=== PATIENT | female | born 1995 | race Caucasian/White ===

== ENCOUNTER 2017-12-11 11:41 | Emergency (ER) | payer MEDICAID ==
[2017-12-11 12:05] VITALS: BP 125/73
[2017-12-11] MEDS ORDERED: Albuterol 2.5 MG/3 ML NEB.SOL* (0.083%) INH ONE (12:45)
--- NOTE | 2017-12-11 13:19 | UC ---
Nimo Chatman Rebecca, scribed for Sanjuana Carrillo MD on 12/11/17 at 1237 . Respiratory Complaint HPI - HPI Summary HPI Summary: Pt is a 22 y/o F who presents to [facility] c/o rhinorrhea, cough, and chest tightness when breathing. Sx began 5 days ago with green nasal discharge, then yesterday, she began experiencing the cough and chest tightness. The cough is nonproductive, though phlegm is being brought up without being expelled. Sx alleviated by steam, aggravated by nothing. Additionally c/o post-nasal drip and sinus pressure. Reports that people around her have been ill recently, including someone with bronchitis. Currently , due February 21, 2018. PMHx asthma for which she uses albuterol, though she does not have her inhaler with her as she is 3 [place] of town. Pt is , due in february + movement Pt's medications reviewed this visit. - History of Current Complaint Chief Complaint: UCRespiratory Stated Complaint: URI Time Seen by Provider: 12/11/17 12:30 Hx Obtained From: Patient Hx Last Menstrual Period: 05/03/13 ?: Yes Onset/Duration: Lasting Days - 5 days, Still Present Severity Currently: Moderate Pain Intensity: 5 Pain Scale Used: 0-10 Numeric Character: Cough: Nonproductive Aggravating Factors: Nothing Alleviating Factors: Other - Steam Associated Signs And Symptoms: Positive: Sinus Discomfort - Allergies/Home Medications Allergies/Adverse Reactions: Allergies Allergy/AdvReac Type Severity Reaction Status Date / Time butorphanol [From Stadol] Allergy Swelling Verified 12/11/17 12:05 Of Face,Lips,& Throat ibuprofen Allergy Swelling Verified 12/11/17 12:05 Of Face,Lips,& Throat PMH/Surg Hx/FS Hx/Imm Hx - Additional Past Medical History Additional PMH: PMHx: ADD Previously Healthy: Yes Respiratory History: Asthma - Surgical History Surgical History: Yes Surgery Procedure, Year, and Place: deviated septum 2011; T&A; tubes bilat; wisdom teeth - Family History Known Family History: Positive: Diabetes, Other - Asthma, mitral valve prolapse - Social History Occupation: Employed Part-time Lives: With Family Alcohol Use: None Substance Use Type: None Smoking Status (MU): Never Smoked Tobacco - Immunization History Most Recent Tetanus Shot: UTD with vaccines Vaccination Up to Date: Yes Review of Systems Constitutional: Negative Skin: Negative Eyes: Negative ENT: Nasal Discharge, Sinus Pain/Tenderness - pressure, Other - Post-nasal drip Respiratory: Cough, Other - Chest tightness Cardiovascular: Negative Gastrointestinal: Negative Genitourinary: Negative Motor: Negative Neurovascular: Negative Musculoskeletal: Negative Neurological: Negative Psychological: Negative All Other Systems Reviewed And Are Negative: Yes Physical Exam Triage Information Reviewed: Yes Appearance: Well-Appearing, No Pain Distress, Well-Nourished Vital Signs: Initial Vital Signs Temp 97.6 F 12/11/17 11:59 Pulse 101 12/11/17 11:59 Resp 18 12/11/17 11:59 BP 125/73 12/11/17 11:59 Pulse Ox 98 12/11/17 11:59 Vital Signs Reviewed: Yes Eye Exam: Normal Eyes: Positive: Conjunctiva Clear ENT Exam: Normal ENT: Positive: Pharynx normal, Nasal congestion, TMs normal Dental Exam: Normal Neck exam: Normal Neck: Positive: Supple, Nontender, No Lymphadenopathy Respiratory Exam: Normal Respiratory: Positive: Chest non-tender, No respiratory distress, No accessory muscle use, Wheezing - scattered wheeze, no rhonci coarse cough non productive no increased WOB speaking full easy sentences Cardiovascular Exam: Normal Cardiovascular: Positive: RRR, No Murmur Abdominal Exam: Normal Abdomen Description: Positive: Nontender, No Organomegaly, Soft Musculoskeletal Exam: Normal Musculoskeletal: Positive: Strength Intact Neurological Exam: Normal Neurological: Positive: Alert Psychological Exam: Normal Psychological: Positive: Normal Response To Family Skin Exam: Normal UC Diagnostic Evaluation - Laboratory O2 Sat by Pulse Oximetry: 98 Re-Evaluation - Re-Evaluation First Eval Re-Evaluation Time: 13:25 Change: Improved Comment: The patient has significantly improved. Wheezing has completely resolved and she feels much better. Will Rx amoxicilling. albuterol. secretion precaution. apap. return precautions. pt in agreement with plan Respiratory Course/Dx - Course Course Of Treatment: Patients medication reviewed this visit. Pt with nasal congestion, cough, and fatigue. pt with sick exposure. pt with - due in February. Pt with scattered wheeze. will give neb. reassess - Differential Dx/Diagnosis Provider Diagnoses: bronchitis Discharge - Sign-Out/Discharge Documenting (check all that apply): Discharge - Discharge Plan Condition: Stable Disposition: HOME Prescriptions: Albuterol HFA INHALER* [Ventolin HFA Inhaler*] 1 puff INH Q4H PRN #1 mdi PRN Reason: wheeze Amoxicillin PO (*) [Amoxicillin 875 MG (*)] 875 mg PO BID #14 tab Patient Education Materials: Acute Bronchitis (ED) Referrals: Jessika Ortiz NP [Primary Care Provider] - Additional Instructions: - Stay well hydrated. Drink plenty of non-alcoholic, non-caffinated beverages. -Take Tylenol g and Tylenol every 6 hours for pain or fever. Take with food. Do NOT take for more than 4-5 days. - take antibiotics a prescribed - use inhaler - 2 puffs every 4 hours today and tomorrow, then every 4 hours as needed -cold foods (popsicle, jello, apple sauce) may be soothing to your throat - These infections are spread by secretions - do NOT share eating or drinking utensils - clean items you share with other people such as cell phones, computer mouse, TV remote, computer tablets, etc. After you have taken Amoxicillin for 2-3 days, change your toothbrush and your pillowcase. - get plenty of restful sleep - humidify the air in the room where you sleep - boil water, run a hot steam shower, vaporizer, cups of water by heat register - okay to take over the counter decongestant and cough medication - contact student health, return here, or go to the emergency department with questions or concerns - Billing Disposition and Condition Condition: STABLE Disposition: HOME The documentation as recorded by the Nimo layne Rebecca accurately reflects the service I personally performed and the decisions made by , Sanjuana Carrillo MD.
== END 2017-12-11 13:40 | disposition home or self-care (01) ==
LOC: UCEAST 11:41
DX: J40 Bronchitis, not specified as acute or chronic (principal); Z88.8 Allergy status to other drugs, medicaments and biological substances
CPT/HCPCS: 99202; G0463

== ENCOUNTER 2019-01-08 19:58 | Emergency (ER) | payer OTHER ==
[2019-01-08 20:13] VITALS: BP 148/60
--- NOTE | 2019-01-08 21:20 | UC ---
Lower Extremity/Ankle HPI - HPI Summary HPI Summary: patient feel on a broken porch step 4 foot this afternoon---has pain in right ankle and lower leg - History of Current Complaint Chief Complaint: UCLowerExtremity Stated Complaint: R FOOT INJURY Time Seen by Provider: 01/08/19 20:08 Hx Obtained From: Patient Hx Last Menstrual Period: 10 days ?: No Onset/Duration: Sudden Onset, Lasting Hours Severity Initially: Moderate Severity Currently: Moderate Pain Intensity: 5 Pain Scale Used: 0-10 Numeric Aggravating Factor(s): Standing, Ambulation Alleviating Factor(s): Rest, Elevation Able to Bear Weight: No - Allergies/Home Medications Allergies/Adverse Reactions: Allergies Allergy/AdvReac Type Severity Reaction Status Date / Time butorphanol [From Stadol] Allergy Swelling Verified 01/08/19 20:05 Of Face,Lips,& Throat ibuprofen Allergy Swelling Verified 01/08/19 20:05 Of Face,Lips,& Throat PMH/Surg Hx/FS Hx/Imm Hx Previously Healthy: No Respiratory History: Asthma - Surgical History Surgical History: Yes Surgery Procedure, Year, and Place: deviated septum 2011; T&A; tubes bilat EARS ; wisdom teeth. 2 C-SECTIONS - Family History Known Family History: Positive: Diabetes, Other - Asthma, mitral valve prolapse - Social History Occupation: Works From/At Home Lives: With Family Alcohol Use: Occasionally Substance Use Type: None Smoking Status (MU): Former Smoker Amount Used/How Often: 1/2 PPD X 6 YEARS Have You Smoked in the Last Year: No When Did the Patient Quit Smoking/Using Tobacco: 07/2016 - Immunization History Most Recent Tetanus Shot: UTD with vaccines Vaccination Up to Date: Yes Review of Systems All Other Systems Reviewed And Are Negative: Yes Constitutional: Positive: Negative Skin: Positive: Negative Eyes: Positive: Negative ENT: Positive: Negative Respiratory: Positive: Negative Cardiovascular: Positive: Negative Gastrointestinal: Positive: Negative Genitourinary: Positive: Negative Motor: Positive: Negative Neurovascular: Positive: Negative Musculoskeletal: Positive: Arthralgia - right ankle and lower leg Neurological: Positive: Negative Psychological: Positive: Negative Is Patient Immunocompromised?: No Physical Exam Triage Information Reviewed: Yes Appearance: Well-Appearing, Pain Distress, Obese Vital Signs: Initial Vital Signs Temp 98 F 01/08/19 20:06 Pulse 99 01/08/19 20:06 Resp 18 01/08/19 20:06 BP 148/60 01/08/19 20:06 Pulse Ox 97 01/08/19 20:06 Vital Signs Reviewed: Yes Eye Exam: Normal Eyes: Positive: Conjunctiva Clear ENT Exam: Normal ENT: Positive: Normal ENT inspection, Hearing grossly normal. Negative: Trismus , Muffled voice, Hoarse voice Dental Exam: Normal Neck exam: Normal Neck: Positive: Supple, Nontender Respiratory Exam: Normal Respiratory: Positive: Chest non-tender, No respiratory distress, No accessory muscle use Cardiovascular Exam: Normal Cardiovascular: Positive: RRR, Pulses Normal, Brisk Capillary Refill Musculoskeletal Exam: Other Musculoskeletal: Positive: No Edema, Strength Limited @ - right foot/ankle, ROM Limited @ - right foot/ankle Neurological Exam: Normal Neurological: Positive: Alert, Muscle Tone Normal Psychological Exam: Normal Skin Exam: Normal Diagnostics - Radiology No standard instances Radiology Interpretation Completed By: ED Physician Summary of Radiographic Findings: no evidence of lower leg or ankle fracture Lower Extremity Course/Dx - Course Course Of Treatment: cam bot, rice, crutches, Tylenol follow with orthopedic in 3 days - Differential Dx/Diagnosis Provider Diagnosis: Sprain of right ankle, Hypertension Discharge - Sign-Out/Discharge Documenting (check all that apply): Patient Departure All imaging exams completed and their final reports reviewed: No - Discharge Plan Condition: Stable Disposition: HOME Patient Education Materials: Ankle Sprain (ED), Contusion in Adults (ED), Foot Contusion (ED), Hypertension (ED), R.I.C.E. Treatment (ED) Referrals: Gilberto Almonte MD [Medical Doctor] - 3 Days - Billing Disposition and Condition Condition: STABLE Disposition: Home
--- NOTE | 2019-01-09 13:35 | UC ---
- Progress Note Progress Note: Radiologist reading radiologist reading of right ankle and right lower leg x- rays from January 09, 2019 comes back with a reading of no fracture but positive for soft tissue swelling. Provider report on the same day it read as no fracture therefore there is no discrepancy. Course/Dx - Diagnoses Provider Diagnoses: Sprain of right ankle, Hypertension Discharge - Sign-Out/Discharge Documenting (check all that apply): Patient Departure All imaging exams completed and their final reports reviewed: Yes - Discharge Plan Condition: Stable Disposition: HOME Patient Education Materials: Ankle Sprain (ED), Contusion in Adults (ED), Foot Contusion (ED), Hypertension (ED), R.I.C.E. Treatment (ED) Referrals: Gilberto Almonte MD [Medical Doctor] - 3 Days - Billing Disposition and Condition Condition: STABLE Disposition: Home
== END 2019-01-08 21:07 | disposition home or self-care (01) ==
LOC: UCEAST 19:58
DX: S93.401A Sprain of unspecified ligament of right ankle, initial encounter (principal); W13.8XXA Fall from, out of or through other building or structure, initial encounter; Y92.008 Other place in unspecified non-institutional (private) residence as the place of occurrence of the external cause; I10 Essential (primary) hypertension; J45.909 Unspecified asthma, uncomplicated; Z88.6 Allergy status to analgesic agent; Z88.5 Allergy status to narcotic agent; Z87.891 Personal history of nicotine dependence
CPT/HCPCS: 99212; G0463

== ENCOUNTER 2019-07-26 07:25 | Inpatient (IN) | payer OTHER ==
[~2019-07-26 07:25] MED LIST: Buffered Lidocaine 1% SYRIN* 1 ML/SYRINGE INTRADERM ONE; Lactated Ringers 1000 ML Bag* 1,000 ML IV SCH; Sodium Citrate/Citric Acid* 15 ML UDC PO ONE
[2019-07-26] MEDS ORDERED: Buffered Lidocaine 1% SYRIN* 1 ML/SYRINGE INTRADERM ONE (08:00)
[2019-07-26] MEDS ORDERED: ceFAZolin 1 GM ADVAN(*) 1 GM ADDV.VIAL IVPB ONE (08:00)
[2019-07-26] MEDS ORDERED: Heparin VIAL(*) 5000 UNITS/ML VIAL (FIVE THOUSAND) ONE (08:00)
[2019-07-26] MEDS ORDERED: Sodium Citrate/Citric Acid* 15 ML UDC ONE (08:00)
[2019-07-26] MEDS ORDERED: ceFAZolin 2 GM in NS PREMIX(*) 2 GM/100 ML BAG IVPB ONE (08:00)
[2019-07-26] MEDS ORDERED: Bupivacaine 0.25% SDV PF* 10 ML VIAL INJ ONE (08:44)
[2019-07-26] MEDS ORDERED: DiMENhydriNATE IV* 50 MG/ML VIAL IV PUSH PRN (08:59)
[2019-07-26] MEDS ORDERED: Scopolamine 1.5 mg* PATCH TRANSDERM PRN (08:59)
[2019-07-26] MEDS ORDERED: Acetaminophen IV 1GM/100ML * 1,000 MG/100 ML VIAL IVPB ONE (08:59)
[2019-07-26] MEDS ORDERED: Naloxone* 0.4 MG/ML 1 ML VIAL IV PRN (08:59)
[2019-07-26] MEDS ORDERED: fentaNYL* 50 MCG/ML 2 ML VIAL (100 MCG VIAL) ONE ×2 (09:08→11:45)
[2019-07-26] MEDS ORDERED: Propofol* 10 MG/ML 20 ML BTL ONE (09:09)
[2019-07-26] MEDS ORDERED: Rocuronium* 10 MG/ML VIAL ONE (09:11)
[2019-07-26] MEDS ORDERED: KETAMINE HCL* 50 MG/ML 10 ML VIAL ONE (09:23)
[2019-07-26] MEDS ORDERED: Glycopyrrolate IV* 0.2 MG/ML 1 ML VIAL ONE (10:41)
[2019-07-26] MEDS ORDERED: Neostigmine Methylsulfate* 3 MG/3 ML SYRINGE ONE (10:42)
[2019-07-26] MEDS ORDERED: diPHENhydraMINE IV* 50 MG/ML 1 ml VIAL (BENADRYL) SLOW PUSH PRN (11:06)
[2019-07-26] MEDS ORDERED: HYDROmorphone INJ1* 1 MG/ML SYRINGE IV SLOW PU PRN (11:06)
--- NOTE | 2019-07-26 11:08 | OP ---
Operative Report - Blank - Operative Report Date of Operation: 07/26/19 Note: Pre-OP Diagnoses: Clinically severe obesity Post-op Diagnosis: same Procedure: Laparoscopic sleeve gastrectomy Surgeon: Apoorva Florest: Dedrick Anethesia: DICK Mike EBL: minimal IVF: see record Specimen: portion of stomach Drains: none
[2019-07-26] MEDS ORDERED: Albuterol HFA INHALER* 8 gm MDI INH PRN (11:13)
[2019-07-26] MEDS ORDERED: DiMENhydriNATE IV* 50 MG/ML VIAL ONE (11:27)
[2019-07-26] MEDS ORDERED: Acetaminophen IV 1GM/100ML * 100 ML ONE (11:27)
[2019-07-26] MEDS: fentaNYL* 50 MCG/ML 2 ML VIAL (100 MCG VIAL) IV PRN ×2 (11:46→12:21)
[2019-07-26] MEDS: Ondansetron INJ* 2 MG/ML VIAL IV PRN ×2 (11:49→19:24)
[2019-07-26] MEDS ORDERED: Ondansetron INJ* 2 MG/ML VIAL ONE (11:49)
--- NOTE | 2019-07-26 12:49 | OP ---
CC: [facility]ariat[facility]; Fam Link Jr. * DATE OF OPERATION: 07/26/19 - ROOM #353 DATE OF : 89 SURGEON: Tucker Guerin MD. PLASTERING CONTRACTOR: Alyssa Tse NP ANESTHESIOLOGIST: Dr. Mike. ANESTHESIA: General. PRE-OP DIAGNOSIS: Clinically severe obesity. POST-OP DIAGNOSIS: Clinically severe obesity. OPERATIVE PROCEDURE: Laparoscopic sleeve gastrectomy. ESTIMATED BLOOD LOSS: Minimal blood loss. FLUIDS: Crystalloid fluid given, see record. SPECIMEN: Portion of stomach. COUNTS: Lap pad count and instrument count correct at the end of the procedure. COMPLICATIONS: None. DESCRIPTION OF PROCEDURE: The patient was identified in the preoperative area, marked, and consent was signed. She was then taken back to the operating room and placed on the operating table in supine position. Preoperative antibiotics given. Sequential devices were placed in bilateral lower extremities. General anesthesia was induced. The patient's abdomen was prepped and draped in standard surgical fashion. Time-out was performed. Folds of the umbilicus were elevated anteriorly and a Veress needle inserted into the abdominal cavity, which was then allowed to insufflate to pressure of 50 mmHg. The patient tolerated insufflation well. [place] between the xiphoid and umbilicus a 12 mm optical trocar was inserted. Laparoscope scope was inserted through this and there was no evidence of injury from the trocar insertion or from the Veress needle, which was then removed. Review of the abdomen showed no free fluid, no blood, there was a very enlarged liver as well as spleen once we started to place the patient in position, we then placed two 5 mm in the left upper quadrant and one 12 mm in the right upper quadrant. Table was repositioned to steep reverse Trendelenburg and Opal retractor was inserted through the subxiphoid incision and the liver was retracted anterior to the right. This was thin but large and did drape over the spleen which was also large, showed no lesions. Next, the gastroesophageal fat pad was grasped and retracted towards right lower quadrant. We then used blunt and sharp dissection to expose the left nella. The lateral aspect of the fat pad was then dissected off the anterior aspect of the stomach. Next, retrogastric tunnel was made at approximately 6 cm proximal to the pylorus. We then used the LigaSure to take the vasculature right up to the angle of His that was previously dissected. We then took posterior attachments as well until the stomach could be entirely rotated on its axis. Next, sleeve stomach was made over 40-Urdu bougie using 60 mm purple GI stapling device with reinforcements. The staple line was intact without twisting, it was tight to the bougie which was then removed at the end of the procedure. The sleeve stomach was then evaluated. There was no bleeding, the liver retractor was removed and the liver fell back on top of the stomach obscuring almost the entire stomach with the exception of the antrum. Next, the resected portion was placed in the endoscope retrieval bag and brought out through the right upper quadrant port site after dilating this. We then closed the fascia with an 0-Vicryl suture using a Weck device. The abdomen was then allowed to collapse, trocars removed under direct vision. Counts were correct and then all 5 skin incisions were reapproximated with 4-0 Monocryl subcuticular sutures, followed by Steri-Strips and sterile dressings. [id number]/[facility] #: [id number] CINDY
[2019-07-26] MEDS: Lactated Ringers 1000 ML Bag* 1,000 ML IV SCH ×2 (14:12→20:29)
[2019-07-26] MEDS: HYDROmorphone INJ* 0.5 MG/0.5 ML SYRINGE IV SLOW PU PRN ×3 (14:42→22:23)
[2019-07-26] MEDS: Metoclopramide IV* 5 MG/ML 2 ML VIAL IV PRN (16:49)
[2019-07-26] MEDS ORDERED: Scopolamine 1.5 mg* PATCH TRANSDERM SCH (17:00)
[2019-07-26] MEDS: Famotidine IV* 10 MG/ML 2 ML (20 mg) IV SLOW PU SCH (21:18)
[2019-07-26] MEDS: Heparin VIAL(*) 5000 UNITS/ML VIAL (FIVE THOUSAND) SUBCUT SCH (22:22)
[2019-07-27] MEDS: Lactated Ringers 1000 ML Bag* 1,000 ML IV SCH (03:19)
[2019-07-27] MEDS: HYDROmorphone INJ* 0.5 MG/0.5 ML SYRINGE IV SLOW PU PRN ×4 (03:37→19:46)
[2019-07-27] MEDS: Heparin VIAL(*) 5000 UNITS/ML VIAL (FIVE THOUSAND) SUBCUT SCH ×3 (05:59→22:12)
[2019-07-27] MEDS: Famotidine IV* 10 MG/ML 2 ML (20 mg) IV SLOW PU SCH ×2 (07:34→21:26)
[2019-07-27] MEDS ORDERED: LEVONORGESTREL VAGINAL SCH (09:00)
[2019-07-27] MEDS ORDERED: Influenza VAC *QUAD* 2019-20* 0.5 ML SYRINGE IM ONE (09:00)
[2019-07-27] MEDS: D5W 1/2 NS KCl 20 Meq 1000 ML* 1,000 ML IV SCH ×2 (10:43→19:14)
--- NOTE | 2019-07-27 10:45 | PN ---
Progress Note - Progress Note Date of Service: 07/27/19 SOAP: Subjective: Comfortable in bed, NAD. - flatus - BM -nausea [] Objective: Vital Signs Temp 98.4 F 07/27/19 07:25 Pulse 60 07/27/19 07:25 Resp 18 07/27/19 08:53 BP 132/69 07/27/19 07:25 Pulse Ox 100 07/27/19 07:25 Intake & Output 07/26/19 07/27/19 07/27/19 18:59 06:59 18:59 Intake Total 1100 1979 Output Total 500 1000 200 Balance 600 980 -200 Weight 300 lb Intake: IV Fluids 1100 1979 LR 1100 1979 Oral 0 Output: Urine 500 1000 200 PEX: Gen: NAD Chest: CTA B/L CVS: RRR Abd: obese, soft, incisions C/D/I, Hypo BS's Ext: calves soft, non tender [] Assessment: POD 1 S/P LAp Sleeve Gastrectomy. UGI showed no leaks [] Plan: Start Bariatric clear liquid diet. OOB ambulate, Insentive spirometry. []
[2019-07-27] MEDS: Ondansetron INJ* 2 MG/ML VIAL IV PRN (13:47)
[2019-07-27] MEDS: Metoclopramide IV* 5 MG/ML 2 ML VIAL IV PRN (18:00)
[2019-07-28] MEDS: HYDROmorphone INJ* 0.5 MG/0.5 ML SYRINGE IV SLOW PU PRN (03:13)
[2019-07-28] MEDS: D5W 1/2 NS KCl 20 Meq 1000 ML* 1,000 ML IV SCH (05:18)
[2019-07-28] MEDS: Heparin VIAL(*) 5000 UNITS/ML VIAL (FIVE THOUSAND) SUBCUT SCH (06:08)
[2019-07-28] MEDS ORDERED: Acetaminophen ADULT LIQ* 650 MG/20.3 ML UDC PO PRN (08:59)
[2019-07-28] MEDS ORDERED: HYDROcodone/ACET. 7.5/325 LIQ* 15 ML UDC PO PRN (09:00)
[2019-07-28] MEDS ORDERED: HYDROcodone/ACET. 7.5/325 LIQ* 15 ML UDC ONE (09:10)
[2019-07-28] MEDS: Famotidine IV* 10 MG/ML 2 ML (20 mg) IV SLOW PU SCH (09:14)
[2019-07-28 11:10] VITALS: BP 149/75
--- NOTE | 2019-07-28 15:22 | DS ---
CC: Primary Care Doctor; [facility] Metabolic [facility] Bariatric Surgery DISCHARGE SUMMARY: DATE OF ADMISSION: DATE OF DISCHARGE: 07/28/19 HOSPITAL COURSE: Ms. Jones is a 24-year-old female worked up as an outpatient with clinically severe obesity. She went to the operating room on day of admission for a laparoscopic sleeve gastrectomy. The patient's procedure was uneventful. Please see operative report for details. She was then transf erred to the PACU and onto the short stay surgical unit. By postoperative day 1, the patient underwent an upper GI study which was within normal limits and th e patient was started on a clear diet. By postoperative day 2, the patient was improved from her nausea on postoperative day 1 and was ready for discharge. The patient was discharged home in stable condition on 07/28/19 for planned to return to her regular medications with the inclusion of a proton pump inhibitor I described to her. PHYSICAL EXAMINATION: On the day of discharge, the patient was alert and oriented x3, in no apparent distress. Head, Ears, Eyes, Nose, and Throat: Normocephalic, atraumatic. Sclerae anicteric. Muco us membranes are moist. Abdomen: Soft, nondistended, nontender. Dressings removed. Steri-Strips i n place. No cellulitis. No calf tenderness. DISPOSITION: Discharged home. Follow up on Wednesday at [facility] for [facility] Sean judi. [id number]/[facility] #: [id number]
[2019-07-29] MEDS ORDERED: Scopolamine PATCH Remove* 1 NOTE MISC PATCH OFF SCH (17:00)
== END 2019-07-28 12:30 | disposition home or self-care (01) | DRG 403 ==
LOC: AA 07:25 → SSU 11:06
PROVIDERS: ADMIT Surgery; ATTEND Surgery
PROC: 0DB64Z3 Excision of Stomach, Percutaneous Endoscopic Approach, Vertical (ICD-10-PCS; principal; 2019-07-26 09:15)
DX: E66.01 Morbid (severe) obesity due to excess calories (principal); Z68.42 Body mass index [BMI] 45.0-49.9, adult; E28.2 Polycystic ovarian syndrome; G47.33 Obstructive sleep apnea (adult) (pediatric); J45.20 Mild intermittent asthma, uncomplicated; E55.9 Vitamin D deficiency, unspecified; F41.8 Other specified anxiety disorders; K58.9 Irritable bowel syndrome, unspecified; Z79.899 Other long term (current) drug therapy; Z83.49 Family history of other endocrine, nutritional and metabolic diseases; Z83.3 Family history of diabetes mellitus; Z82.61 Family history of arthritis; Z87.891 Personal history of nicotine dependence
CPT/HCPCS: 43775; 74246; 81025; 88307; 90686; A9270-GY; J0690; J1170; J1240; J1644; J2405; J2704; J2710; J2765; J3010; J3490

== ENCOUNTER 2021-05-28 09:55 | Observation (INO) ==
[~2021-05-28 09:55] MED LIST changes: +Buffered Lidocaine 1% SYRIN 1 ml INTRADERM ONE; -Buffered Lidocaine 1% SYRIN* 1 ML/SYRINGE INTRADERM ONE; +DiMENhydriNATE IV 50 mg/ml 1 ml VIAL IV PUSH ONE; +HYDROcodone/ACETAMIN 5/325 mg TAB PO PRN; -Lactated Ringers 1000 ML Bag* 1,000 ML IV SCH; +Lactated Ringers 1000 ml BAG 1,000 ML IV SCH; +Metoclopramide 5 MG/ML VIAL (10 mg) IV PRN; +Naloxone 0.4 mg VIAL 0.4 mg/ml 1 ml VIAL IV PRN; +Ondansetron 4 mg VIAL 2 MG/ML 2 ml VIAL IV PRN; -Sodium Citrate/Citric Acid* 15 ML UDC PO ONE
[2021-05-28] MEDS ORDERED: Rocuronium 50 mg VIAL 10 mg/ml 5 ml VIAL (50 mg) ONE (10:07)
[2021-05-28] MEDS ORDERED: Ondansetron 4 mg VIAL 2 MG/ML 2 ml VIAL ONE (10:07)
[2021-05-28] MEDS ORDERED: Midazolam 2 mg/2 ml VIAL 1 mg/ml 2 ml VIAL (2 mg) ONE (10:07)
[2021-05-28] MEDS ORDERED: fentaNYL 250 mcg/5 ml 50 MCG/ML 5 ml VIAL (250 MCG) ONE (10:07)
[2021-05-28] MEDS ORDERED: Propofol 10 MG/ML 20 ML BTL ONE (10:07)
[2021-05-28] MEDS ORDERED: Dexamethasone IV 4 MG/ML VIAL 1 ml VIAL ONE (10:07)
[2021-05-28] MEDS ORDERED: Lidocaine 2% PF 5 ML VIAL ONE (10:07)
[2021-05-28] MEDS ORDERED: ceFAZolin 2 GM in NS PREMIX 2 GM/100 ML BAG IVPB ONE (10:15)
[2021-05-28] MEDS ORDERED: Heparin 5000 UNITS/ML 1 mL VIAL ONE (10:15)
[2021-05-28] MEDS ORDERED: Buffered Lidocaine 1% SYRIN 1 ml INTRADERM ONE (10:15)
[2021-05-28] MEDS ORDERED: DiMENhydriNATE IV 50 mg/ml 1 ml VIAL ONE (10:15)
[2021-05-28] MEDS ORDERED: Bupivacaine 0.25% SDV 30 ML ONE (10:39)
[2021-05-28] MEDS ORDERED: Ketamine HCL 50 mg/ml 10 ml VIAL (500 MG) ONE (11:39)
[2021-05-28] MEDS ORDERED: Phenylephrine 40 mcg/mL 10mL (400mcg) SYRINGE ONE (13:00)
[2021-05-28] MEDS ORDERED: fentaNYL 100 mcg/2 ml 50 MCG/ML VIAL ONE (14:57)
[2021-05-28] MEDS: fentaNYL 100 mcg/2 ml 50 MCG/ML VIAL IV PRN ×2 (14:58→15:28)
[2021-05-28] MEDS ORDERED: HYDROcodone/ACETAMIN 5/325 mg TAB ONE (15:45)
[2021-05-28] MEDS ORDERED: oxyCODONE/Acetamin 5/325 mg TAB ONE (15:54)
[2021-05-28] MEDS: oxyCODONE/Acetamin 5/325 mg TAB PO PRN ×2 (15:54→21:55)
[2021-05-28] MEDS: Lactated Ringers 1000 ml BAG 1,000 ML IV SCH (16:33)
[2021-05-28] MEDS ORDERED: HYDROmorphone 0.5 MG/0.5 ML SYRINGE IV SLOW PU PRN (16:50)
[2021-05-28] MEDS: Ondansetron 4 mg VIAL 2 MG/ML 2 ml VIAL IV PRN ×2 (16:54→21:57)
[2021-05-28] MEDS: ceFAZolin 2 GM in NS PREMIX 2 GM/100 ML BAG IVPB SCH (19:27)
[2021-05-28] MEDS: Heparin 5000 UNITS/ML 1 mL VIAL SUBCUT SCH (22:02)
[2021-05-29] MEDS: Lactated Ringers 1000 ml BAG 1,000 ML IV SCH (03:13)
[2021-05-29] MEDS: ceFAZolin 2 GM in NS PREMIX 2 GM/100 ML BAG IVPB SCH ×2 (03:16→10:34)
[2021-05-29] MEDS: oxyCODONE/Acetamin 5/325 mg TAB PO PRN ×2 (05:49→10:36)
[2021-05-29] MEDS: Heparin 5000 UNITS/ML 1 mL VIAL SUBCUT SCH (05:51)
[2021-05-29 07:14] VITALS: BP 127/73
== END 2021-05-29 11:35 | disposition home or self-care (01) ==
LOC: OR 09:55 → SSU 14:55 → INTOOBSV 14:55
PROVIDERS: ADMIT Surgery; ATTEND Surgery